=== PATIENT | male | born 1945 | race Caucasian/White ===

== ENCOUNTER → 2020-04-01 | Outpatient (CLI) | payer MEDICARE, OTHER | LOC: CARD 09:29 | PROVIDERS: ATTEND Podiatrist | DX: S91.301A Unspecified open wound, right foot, initial encounter (principal) | CPT/HCPCS: 93922; 93925 ==

== ENCOUNTER 2020-04-03 13:15 | Outpatient (RCR) | payer MEDICARE, OTHER ==
[2020-03-27 16:44] LABS: BASOPHILS # (AUTO) 0.1 (0.0-0.1); BASOPHILS % 0.7 % (0.0-1.0); EOSINOPHILS # (AUTO) 0.3 (0.0-0.4); EOSINOPHILS % 4.8 % (0.0-6.0); HEMATOCRIT 46.4 % (38.2-49.6); HEMOGLOBIN 15.6 g/dL (14.0-18.0); LYMPHOCYTES # (AUTO) 2.3 (1.0-3.2); LYMPHOCYTES % 33.2 % (18.0-39.1); MEAN CORPUSCULAR HEMOGLOBIN 31.5 pg (28-32); MEAN CORPUSCULAR HGB CONC 33.6 g/dL (31-35); MEAN CORPUSCULAR VOLUME 93.5 fL (81-99); MONOCYTES # (AUTO) 0.6 (0.2-0.8); MONOCYTES % 8.6 % (4.4-11.3); NEUTROPHILS # (AUTO) 3.6 (2.1-6.9); NEUTROPHILS % 52.4 % (38.7-80.0); PLATELET COUNT 226 x10e3/uL (140-360); RED BLOOD COUNT 4.96 x10e6/uL (4.3-5.7); RED CELL DISTRIBUTION WIDTH 13.1 % (11.7-14.4)
[2020-03-27 16:53] LABS: ALANINE AMINOTRANSFERASE 20 IU/L (0-55); ALBUMIN 3.9 g/dL (3.5-5.0); ALBUMIN/GLOBULIN RATIO 1.1 (0.8-2.0); ALKALINE PHOSPHATASE 55 IU/L (40-150); ANION GAP 15.8 mmol/L (8-16); BLOOD UREA NITROGEN 10 mg/dL (7-26); BUN/CREATININE RATIO 12 (6-25); CALCIUM 8.9 mg/dL (8.4-10.2); CARBON DIOXIDE 19 mmol/L (22-29); CHLORIDE 106 mmol/L (98-107); CREATININE, SERUM 0.85 mg/dL (0.72-1.25); EST GLOMERULAR FILTRATION RATE > 60 ML/MIN (60-); GLUCOSE 94 mg/dL (74-118); POTASSIUM 3.8 mmol/L (3.5-5.1); SODIUM 137 mmol/L (136-145)
[~2020-04-03 13:15] MED LIST: LIDOCAINE/PRILOCAINE 2.5-2.5% KIT ONE
== END 2020-04-07 ==
LOC: WCC 13:15
PROVIDERS: ATTEND Podiatrist
DX: S91.309A Unspecified open wound, unspecified foot, initial encounter (principal); W45.8XXA Other foreign body or object entering through skin, initial encounter
CPT/HCPCS: 36415; 80053; 83036; 84134; 85025

== ENCOUNTER → 2020-04-11 | Outpatient (CLI) | payer MEDICARE ==
[~2020-04-11] MED LIST changes: +GADOBENATE DIMEGLUMINE 1 ML IV ONE; -LIDOCAINE/PRILOCAINE 2.5-2.5% KIT ONE
[2020-04-11 10:09] LABS: BLOOD UREA NITROGEN 12 mg/dL (7-26); BUN/CREATININE RATIO 13 (6-25); CREATININE, SERUM 0.89 mg/dL (0.72-1.25); EST GLOMERULAR FILTRATION RATE > 60 ML/MIN (60-)
== END ==
LOC: MRI 09:25
PROVIDERS: ATTEND Internal Medicine Gastroenterology
DX: S91.301A Unspecified open wound, right foot, initial encounter (principal)
CPT/HCPCS: 36415; 73720; 82565; 84520; A9577

== ENCOUNTER 2020-04-17 16:15 | Outpatient (RCR) | payer MEDICARE ==
[~2020-04-17 16:15] MED LIST changes: -GADOBENATE DIMEGLUMINE 1 ML IV ONE; +LIDOCAINE/PRILOCAINE 2.5-2.5% KIT ONE; +SILVER SULFADIAZINE 50GM CREAM ONE
== END 2020-05-05 ==
LOC: WCC 16:15
PROVIDERS: ATTEND Podiatrist
DX: S91.309A Unspecified open wound, unspecified foot, initial encounter (principal); W45.8XXA Other foreign body or object entering through skin, initial encounter